=== PATIENT | male | born 1960 | race Caucasian/White ===

== ENCOUNTER 2019-03-20 23:56 | Emergency (ER) | payer OTHER ==
[~2019-03-20] VITALS: Ht 175.3 cm; Wt 70.0 kg
[2019-03-21 00:09] VITALS: Ht 175.3 cm; Wt 70.0 kg
[2019-03-21] MEDS ORDERED: LORAZEPAM 2 MG INJ ONE (00:11)
[2019-03-21] MEDS ORDERED: LORAZEPAM 2 MG INJ IV ONE ×3 (00:30→11:00)
[2019-03-21] MEDS ORDERED: HYOS0.1297 SL (04:42)
[2019-03-21] MEDS ORDERED: ATILIQ SL (04:42)
[2019-03-21] MEDS ORDERED: DOCU-159 PO (04:42)
[2019-03-21] MEDS ORDERED: ASPI325T30 PO (04:42)
[2019-03-21] MEDS ORDERED: DIV250 PO (04:42)
[2019-03-21] MEDS ORDERED: ALPR0.254 PO (04:42)
[2019-03-21] MEDS ORDERED: ATOR40TA68 PO (04:42)
[2019-03-21] MEDS ORDERED: MORP10DI10 SL (04:42)
--- NOTE | 2019-03-21 05:40 | ERD ---
ER Documentation Chief Complaint Chief Complaint caregiver out of town, temporary caregiver unable to control aggitation HPI Is a 59-year-old male who essentially was dominant here in the ER because his temporary caregiver control his agitation. Apparently his primary caregiver is out of town. Patient cannot relate any history. The temporary care November did not come to the ER with the patient any other we have tried contacting both and neither has responded at this time. ROS All systems reviewed and are negative except as per history of present illness. Medications Home Meds Reported Medications Docusate Sodium* (Docusate Sodium*) 100 Mg Capsule, 100 MG PO BID for CONSTIPATION, #60 CAP 03/21/19 Hyoscyamine Sulfate* (Hyoscyamine Sulfate*) 0.125 Mg Tab.subl, 0.125 MG SL Q4H PRN for EXCESSIVE SECRETION, TAB 03/21/19 Aspirin* (Aspirin*) 325 Mg Tablet, 325 MG PO DAILY, TAB 03/21/19 Atorvastatin* (Atorvastatin*) 40 Mg Tablet, 40 MG PO QHS for HYPERLIPIDEMIA, #30 TAB 03/21/19 Alprazolam* (Alprazolam*) 0.25 Mg Tablet, 0.25 MG PO Q6 PRN for ANXIETY, TAB 03/21/19 Divalproex Sodium* (Divalproex Sodium*) 250 Mg Tablet.dr, 250 MG PO TID, #90 TAB 03/21/19 Lorazepam* (Ativan* Intensol) 2 Mg/Ml Soln, 0.25 MG SL Q4H PRN for ANXIETY, #1 BOTTLE 03/21/19 Morphine Sulfate* (Morphine* Liq) 10 Mg/0.5 Ml Disp.syrin, 20 MG SL Q2H PRN for SEVERE PAIN LEVEL 7-10, ML TAKE 0.25ML{0.5MG} SL Q2H PRN 03/21/19 Allergies Allergies: Coded Allergies: No Known Allergy (Unverified , 03/21/19) Unknown: Unable to obtain (Unverified , 03/21/19) PMhx/Soc Hx Psychiatric Problems: Yes Hx Miscellaneous Medical Probl: Yes (High cholesterol) Smoking Status: Unknown if ever smoked Physical Exam Vitals Vital Signs Date Temp Pulse Resp B/P (MAP) Pulse Ox O2 O2 Flow FiO2 Time Delivery Rate 03/21/19 59 21 118/87 96 Nasal 05:35 (97) Cannula 03/21/19 74 20 131/80 98 Room Air 04:11 (97) 03/21/19 97.5 99 20 123/80 97 Room Air 01:15 (94) 03/21/19 97.5 76 20 123/80 97 00:09 (94) Physical Exam Const: No acute distress Head: Atraumatic Eyes: Normal Conjunctiva ENT: Normal External Ears, Nose and Mouth. Neck: Full range of motion. No meningismus. Resp: Clear to auscultation bilaterally Cardio: Regular rate and rhythm, no murmurs Abd: Soft, non tender, non distended. Normal bowel sounds Skin: No petechiae or rashes Back: No midline or flank tenderness Ext: No cyanosis, or edema Neur: Awake and alert Psych: Normal Mood and Affect Result Diagram: 03/21/1913303/21/19 013 Results 24 hrs Laboratory Tests Test 03/21/19 00:12 03/21/19 01:34 03/21/19 03:33 Urine Color YELLOW Urine Clarity CLEAR Urine pH 6.0 Urine Specific [place] 1.017 Urine Ketones NEGATIVE mg/dL Urine Nitrite NEGATIVE mg/dL Urine Bilirubin NEGATIVE mg/dL Urine Urobilinogen 1+ mg/dL Urine Leukocyte Esterase NEGATIVE Lela/ul Urine Hemoglobin NEGATIVE mg/dL Urine Glucose NEGATIVE mg/dL Urine Total Protein NEGATIVE mg/dl Urine Opiates Screen Positive Urine Barbiturates Negative Urine Amphetamines Screen Negative Urine Benzodiazepines Screen Negative Urine Cocaine Screen Negative Urine Cannabinoids Negative White Blood Count 5.1 10^3/ul Red Blood Count 4.36 10^6/ul Hemoglobin 13.2 g/dl Hematocrit 40.7 % Mean Corpuscular Volume 93.3 fl Mean Corpuscular Hemoglobin 30.3 pg Mean Corpuscular 32.4 g/dl Hemoglobin Concent Red Cell Distribution Width 13.5 % Platelet Count 213 10^3/UL Mean Platelet Volume 9.2 fl Immature Granulocytes % 0.600 % Neutrophils % 59.5 % Lymphocytes % 24.4 % Monocytes % 13.5 % Eosinophils % 1.8 % Basophils % 0.2 % Nucleated Red Blood Cells % 0.0 /100WBC Immature Granulocytes # 0.030 10^3/ul Neutrophils # 3.1 10^3/ul Lymphocytes # 1.3 10^3/ul Monocytes # 0.7 10^3/ul Eosinophils # 0.1 10^3/ul Basophils # 0.0 10^3/ul Nucleated Red Blood Cells # 0.0 10^3/ul Sodium Level 145 mmol/L Potassium Level 4.8 mmol/L Chloride Level 109 mmol/L Carbon Dioxide Level 32 mmol/L Anion Gap 4 Blood Urea Nitrogen 15 mg/dl Creatinine 0.67 mg/dl Est Glomerular Filtrat > 60 mL/min Rate mL/min Glucose Level 130 mg/dl Calcium Level 8.7 mg/dl Total Bilirubin 0.3 mg/dl Direct Bilirubin 0.00 mg/dl Indirect Bilirubin 0.3 mg/dl Aspartate Amino 15 IU/L Transf (AST/SGOT) Alanine 32 IU/L Aminotransferase (ALT/SGPT) Alkaline Phosphatase 53 IU/L Troponin I < 0.012 ng/ml Total Protein 6.7 g/dl Albumin 3.7 g/dl Globulin 3.00 g/dl Albumin/Globulin Ratio 1.23 Salicylates Level < 1.0 mg/dl Acetaminophen Level < 10.0 ug/ml Ethyl Alcohol Level < 10.0 mg/dl Lactic Acid Level 1.2 mmol/L Current Medications Medications Dose Sig/Aiden Start Time Status Last (Trade) Ordered Route PRN Stop Time Admin Dose Reason Admin Lorazepam 2 mg ONCE ONCE 03/21/19 DC 03/21/19 (Ativan) IV 00:30 00:18 03/21/19 00:31 Lorazepam 1 mg ONCE ONCE 03/21/19 DC 03/21/19 (Ativan) IV 04:30 04:17 03/21/19 04:31 Procedures/MDM EKG: Rate/Rhythm: [Normal Sinus Rhythm] QRS, ST, T-waves: [No changes consistent w/ acute ischemia] Impression: [No evidence of ischemia or arrhythmia] Chest X-ray 1V Interpreted by me: Soft Tissue: No acute abnormalities Bones: No acute abnormalities Mediastinum/Cardiac Silhouette/Lungs: [No acute abnormalities] Medical decision makin-year-old male who essentially here for agitation. This seems to be his baseline. Patient is pending social work consult Departure Diagnosis: Primary Impression: Agitation Condition: Stable NIK RICH March 21, 2019 05:40
[2019-03-21] MEDS ORDERED: HALOPERIDOL 5 MG INJ IM ONE ×3 (07:00→11:00)
--- NOTE | 2019-03-21 10:03 | QN ---
Documentation Comment Observation Note: Time: 4 hours Family Hx: Unable to obtain Evaluation: Multiple exams showed improving symptoms and no evidence of clinical decompensation. Patient required Haldol for sedation. The patient will be seen by social work to determine safe placement. JAIRO PIERCE MD March 21, 2019 10:03
[2019-03-21] MEDS ORDERED: DIAZEPAM 5 MG/ML SYG IV ONE (13:00)
[2019-03-21 17:50] VITALS: BP 133/84; PULSE 87; RESP 17
== END 2019-03-21 17:55 | disposition home or self-care (01) ==
LOC: E/R 23:56
DX: R45.1 Restlessness and agitation (principal); R41.82 Altered mental status, unspecified; R40.2142 Coma scale, eyes open, spontaneous, at arrival to emergency department; R40.2242 Coma scale, best verbal response, confused conversation, at arrival to emergency department; R40.2362 Coma scale, best motor response, obeys commands, at arrival to emergency department; Z79.82 Long term (current) use of aspirin
CPT/HCPCS: 36415; 71045; 80053; 80307; 81003; 83605; 84484; 85025; 93005; 96372; 96374; 96375; 96376; J1630; J2060; J3360; Z7502